=== PATIENT | female | born 1995 | race Caucasian/White ===

== ENCOUNTER 2020-04-15 13:48 | Outpatient (CLI) | payer OTHER ==
--- NOTE | 2020-04-15 14:36 | ULT ---
Obstetric sonogram HISTORY: Second trimester gestation. evaluation. Evaluate cervical length. FINDINGS: Single intrauterine gestation in cephalic presentation. Cervix is closed and 3.6 cm. Grade 0 placenta is anterior. No evidence of previa. Amniotic fluid is within normal limits. Three-vessel cord shows a normal insertion. spine and kidneys are intact as visualized. No yash s intracranial abnormalities are apparent. Four-chamber heart motion at 147 bpm. Measurements are as follows: Biparietal diameter 19 weeks 5 days Head circumference 19 weeks 3 days Abdominal circumference 19 weeks 6 days Femur length 19 weeks 3 days [place] 14 percentile. Estimated date of delivery 09/04/2020. IMPRESSION : Single intrauterine gestation. Estimated gestational age 19 weeks 5 days. No abnormalities are demons trated. Cervix 3.6 cm.
== END 2020-04-15 13:49 | disposition home or self-care (01) ==
LOC: BICULT 13:48
PROVIDERS: ATTEND Family Medicine
DX: Z34.82 Encounter for supervision of other normal pregnancy, second trimester (principal); Z3A.19 19 weeks gestation of pregnancy
CPT/HCPCS: 76805

== ENCOUNTER 2024-08-15 07:39 | Observation (INO) | payer OTHER ==
[2024-08-15] MEDS ORDERED: niCARdipine 25 MG/10 ML SDV ONE (07:52)
[2024-08-15 08:48] LABS: #Basophils 0.04 10x3/uL (0.0-0.2); %Basophils 0.4 % (0.0-1.0); %Eosinophils 1.6 % (0.0-10.0); %Lymphocytes 23.4 % (21.0-51.0); %Monocytes 7.2 % (0.0-10.0); %Neutrophils 67.1 % (42.0-75.0); Hematocrit 41.9 % (36.0-47.0); Hemoglobin 14.1 g/dL (12.0-16.0); Mean Corpuscular HGB CONC 33.7 g/dL (32.0-36.0); Mean Corpuscular Volume 89.1 fL (78.0-98.0); Mean Platelet Volume 9.1 fL (7.4-10.4); Platelet Count 340 10x3/uL (130-400)
[2024-08-15 08:55] LABS: Lipase 20 U/L (8-78)
[2024-08-15 08:57] LABS: ALT (SGPT) 19 U/L (Less than 34); AST (SGOT) 21 U/L (11-34); Acetaminophen Less than 10 mcg/mL (Less than 10); Albumin 3.6 g/dL (3.1-4.5); Alcohol Less than 10.0 mg/dL (Less than 10); Alkaline Phosphatase 72 U/L (40-110); Anion Gap 11 mmol/L (10-20); BUN (Urea Nitrogen) 12 mg/dL (7.0-18.7); Bilirubin, Total 0.2 mg/dL (0.3-1.2); CK (CPK) 64 U/L (29-168); Calc. Creatinine Clearance 0 mL/min (70-130); Calcium 8.5 mg/dL (7.8-10.44); Carbon Dioxide 22 mmol/L (22-29); Chloride 106 mmol/L (98-107); Estimated GFR 112; Globulin 3.4 g/dL (2.4-3.5); Glucose 106 mg/dL (70-105); Potassium 3.8 mmol/L (3.5-5.1); Salicylate Less than 8.0 mg/dL (Less than 8.0); Sodium 135 mmol/L (136-145)
[2024-08-15 08:59] LABS: BHCG - Serum Negative (NEGATIVE); Pregs Control Background? CLEAR/WHITE (CLR/WHITE); Pregs Control Bar Appear? YES (CONTROL BAR)
[2024-08-15 09:01] LABS: Troponin I 0.015 ng/mL (< 0.028)
[2024-08-15] MEDS ORDERED: Calcium Carbonate 500 MG ChewTAB PO PRN (09:17)
[2024-08-15] MEDS ORDERED: Ondansetron PF 4 MG/2 ML Vial IVP PRN (09:17)
[2024-08-15] MEDS ORDERED: Senokot S 8.6-50 MG TAB PO PRN (09:17)
[2024-08-15] MEDS ORDERED: Ondansetron ODT 4 MG TAB PO PRN (09:17)
[2024-08-15] MEDS ORDERED: Acetaminophen 650 MG Suppository PR PRN (09:17)
[2024-08-15 09:19] LABS: Amphetamine Negative (Negative); Barbiturates Screen Negative (Negative); Benzodiazepine Screen Negative (Negative); Cocaine Metabolite Screen Negative (Negative); Methadone Negative (Negative); Methamphetamine Negative (Negative); Opiate Screen Negative (Negative); Oxycodone Screen Negative (Negative); Phencyclidine (PCP) Negative (Negative); THC/Cannabinoid Screen Negative (Negative); Tricyclic Screen Negative (Negative)
[2024-08-15] MEDS ORDERED: Labetalol HCl 100 MG/20 ML VIAL SLOW IVP PRN (09:19)
[2024-08-15] MEDS ORDERED: Nicotine 14 MG PATCH TD PRN (09:19)
[2024-08-15] MEDS ORDERED: Aspirin Chewable 81 MG TAB ONE (09:21)
[2024-08-15] MEDS ORDERED: Acetaminophen 500 MG TAB ONE (09:30)
[2024-08-15] MEDS ORDERED: Lisinopril 20 MG TAB ONE (09:31)
[2024-08-15 09:34] LABS: Bacteria/HPF None Seen HPF (None Seen); Bilirubin Negative (Negative); Blood, Urine Negative (Negative); CAUTI Indications for Culture Alt mental st,lethar; Clarity Clear (Clear); Glucose, Urine (Dipstick) Normal (Negative); Ketone, Urine Negative (Negative); Leukocyte 75 Leu/uL (Negative); Nitrite Negative (Negative); Protein, Urine (Dipstick) 20 mg/dL (Neg-Trace); RBC/HPF None Seen HPF (0-3); Specific Gravity, Urine 1.028 (1.002-1.036); Squamous Epithelial 0-3 HPF (0-3); Urobilinogen Normal mg/dL (Less than 2); pH, Urine 6.5 (5.0-9.0)
[2024-08-15 09:39] LABS: Urine Culture Reflex No No
[2024-08-15 10:04] LABS: Cardiac Risk 6.2 (Less than 4.5)
[2024-08-15 11:05] LABS: Hemoglobin A1c 5.3 % (4.0-6.0)
[2024-08-15 14:33] VITALS: BMI 30.8
[2024-08-15] MEDS ORDERED: Iopamidol-370 76% 500 ML MDV (1 ML CHARGE) ONE (15:21)
[2024-08-15] MEDS: Atorvastatin Calcium 40 MG TAB PO SCH (20:45)
[2024-08-15] MEDS: Melatonin 3 MG TAB PO PRN (20:45)
[2024-08-15] MEDS: Acetaminophen 325 MG TAB PO PRN (20:48)
[2024-08-16 04:24] LABS: Hematocrit 42.3 % (36.0-47.0); Hemoglobin 13.9 g/dL (12.0-16.0); Mean Corpuscular HGB CONC 32.9 g/dL (32.0-36.0); Mean Corpuscular Hemoglobin 29.9 pg (27.0-31.0); Mean Platelet Volume 9.1 fL (7.4-10.4); Platelet Count 317 10x3/uL (130-400); RBC Distribution Width 13.2 % (11.5-14.5); Red Blood Cell (RBC) Count 4.65 mill/uL (4.20-5.40)
[2024-08-16 04:37] LABS: Anion Gap 12 mmol/L (10-20); BUN (Urea Nitrogen) 13 mg/dL (7.0-18.7); Calc. Creatinine Clearance 148 mL/min (70-130); Calcium 8.8 mg/dL (7.8-10.44); Carbon Dioxide 25 mmol/L (22-29); Chloride 104 mmol/L (98-107); Estimated GFR 116; Glucose 100 mg/dL (70-105); Potassium 3.9 mmol/L (3.5-5.1); Sodium 137 mmol/L (136-145)
[2024-08-16 05:04] LABS: Band 1 % (5-11); Eosinophils 1 % (0-10); Lymphocytes 42 % (21-51); Monocytes 7 % (0-10); Neutrophil 47 % (42-75); Platelet Adequacy Comment Platelets Normal; RBC Morphology Within Normal Limits; Reactive Lymphocytes 1 % (0-10); Smudge Cells 12.2 %
[2024-08-16] MEDS ORDERED: Lisinopril 20 MG TAB PO SCH (09:00)
[2024-08-16] MEDS ORDERED: Amlodipine 5 mg/Benazepril 20 mg CAP PO SCH (09:00)
[2024-08-16] MEDS: Aspirin 81 mg Enteric Coated Tablet PO SCH (11:20)
[2024-08-16] MEDS: Amlodipine 5 MG TAB PO SCH (11:25)
[2024-08-16 11:28] VITALS: BP 137/80; TEMP 98.4
[2024-08-16] MEDS: Lisinopril 20 MG TAB PO SCH (11:57)
[2024-08-17] MEDS ORDERED: Lisinopril 20 MG TAB PO SCH (09:00)
[2024-08-17] MEDS ORDERED: Amlodipine 5 MG TAB PO SCH (09:00)
== END 2024-08-16 17:45 | disposition home or self-care (01) ==
LOC: ERS 07:39 → ERHOLD 09:13 → 2SE 14:12
PROVIDERS: ADMIT Internal Medicine; ATTEND Internal Medicine
PROC: B24BZZZ Ultrasonography of Heart with Aorta (ICD-10-PCS; principal; 2024-08-16)
DX: R29.818 Other symptoms and signs involving the nervous system (principal); R53.1 Weakness; I16.0 Hypertensive urgency; I10 Essential (primary) hypertension; F41.9 Anxiety disorder, unspecified; F32.A Depression, unspecified; F17.290 Nicotine dependence, other tobacco product, uncomplicated; Z90.49 Acquired absence of other specified parts of digestive tract; Z91.048 Other nonmedicinal substance allergy status; Z79.899 Other long term (current) drug therapy
CPT/HCPCS: 36415; 70450; 70496; 70498; 70551; 71045; 80048; 80053; 80061; 80306; 80307; 81001; 82550; 83036; 83690; 84443; 84484; 84703; 85025; 93005; 93306; 96360; G0378; Q9967